=== PATIENT | male | born 1940 | race Caucasian/White ===

== ENCOUNTER 2016-08-09 13:09 | Inpatient (IN) | payer OTHER ==
--- NOTE | 2016-08-09 13:41 | CPEKG ---
Heart Rate: 108 RR Interval: 556 P-R Interval: 112 QRSD Interval: 124 QT Interval: 368 QTC Interval: 494 P [place]: 0 QRS [place]: 55 EKG Severity - ABNORMAL ECG - EKG Impression: SINUS TACHYCARDIA EKG Impression: NONSPECIFIC INTRAVENTRICULAR CONDUCTION DELAY EKG Impression: ST DEPRESSION, CONSIDER ISCHEMIA, ANT-LAT LDS Electronically Signed By: Teo Doan 09-Aug-2016 13:49:48
[2016-08-09] MEDS ORDERED: methylPREDNISolone SOD SUCC 125 MG/2 ML VIAL IVP ONE (13:44)
[2016-08-09] MEDS ORDERED: IPRATROPIUM/ALBUTEROL 3 ML DEYVIAL IH ONE (13:44)
--- NOTE | 2016-08-09 13:45 | EDPHY ---
H & P Time Seen by Provider: 08/09/16 13:29 HPI/ROS: CHIEF COMPLAINT: Wheezing and increased oxygen need HISTORY OF PRESENT ILLNESS: History is from patient as well as his son. He has a history of COPD and pulmonary embolism. The patient is brought in today by his son with increased coughing and chest congestion as well as increased oxygen demand. Today son noted the patient was 86% on his normal 2 L and had labored breathing. This is associated with a nonproductive cough but without chest pain or fever. Symptoms moderate to severe and associated with weakness such that the patient can't even get around even with his walker. REVIEW OF SYSTEMS: Eye: no change in vision ENT: no sore throat Cardiac: no chest pain or syncope Pulmonary: HPI, no hemoptysis. Abdomen: No vomiting or abdominal pain, but worsening fecal incontinence. Musculoskeletal: no back pain or leg swelling Skin: Sacral decubitus, unchanged Neuro: no headache Constitutional: no fever : Urinary incontinence, increasing over the past month. A comprehensive 10 point review of systems is otherwise negative aside from elements mentioned in the history of present illness. PAST MEDICAL HISTORY: Includes cardiac bypass in 2000, renal failure, hypertension, diabetes, COPD with home oxygen, pulmonary embolism with anticoagulation discontinued in 2014 after multiple falls. Social history: Ex pipe smoker, here with his son General Appearance: Alert and conversant, cooperative. Eyes: No scleral icterus. ENT, Mouth: Normal mucous membranes. Respiratory: Bilateral expiratory wheezes with no rales or focal lung sounds and increased expiratory phase. Cardiovascular: Regular rate and rhythm. Tachycardic. Gastrointestinal: Abdomen is soft and non tender. Neurological: Alert and knows it is 2016 but thinks it is April. Normally conversant. Face symmetric, normal movement and sensation in all extremities. Skin: Sacral decubitus 10 x 12 cm. Musculoskeletal: No peripheral edema and no joint swelling. Psychiatric: Not agitated. Emergency Department course/MDM: Patient is worsening dyspnea with tachycardia and hypoxia. Plan for DuoNeb and IV steroids Solu-Medrol 125 mg with audible wheezing and history of COPD. Chest x-ray and D-dimer and troponin. Admission to hospitalist service. 1450: Results and plan discussed, CT discussed and consented, usual [address] ordered for dyspnea, D-dimer greater than 2, history of pulmonary embolism. Thrombocytopenia with platelet count 84 noted, is similar to previous variable values. Saturation mid 90s on increased nasal cannula oxygen which was applied immediately for hypoxemia. Smoking Status: Former smoker Constitutional: Initial Vital Signs Temperature (C) 36.6 C 08/09/16 13:10 Heart Rate 125 H 08/09/16 13:10 Respiratory Rate 20 08/09/16 13:10 Blood Pressure 148/86 H 08/09/16 13:10 O2 Sat (%) 87 L 08/09/16 13:10 O2 Delivery Mode Nasal Cannula O2 (L/minute) 3 Allergies/Adverse Reactions: Ebcnmji-Bsb-Efz Reductase Inhibitor Allergy (Verified 08/09/16 13:22) Home Medications: Medication Instructions Recorded Ergocalciferol [Vitamin D2 (*)] 50,000 unit PO .QMONTH 09/13/11 Ezetimibe [Zetia 10 MG (*)] 10 mg PO HS 09/13/11 Niacin ER [Niaspan 1000 mg (*)] 1,000 mg PO HS 09/13/11 ALPRAZolam [Xanax 0.25 MG (*)] 0.25 mg PO TID 07/31/14 amLODIPine BESYLATE [Norvasc 5 mg 5 mg PO HS 07/31/14 (*)] Fluvastatin Sodium [Lescol] 40 mg PO HS 10/04/14 Lisinopril [Zestril 5 mg (*)] 5 mg PO HS 12/25/14 oxyCODONE IR [Oxycodone Ir (*)] 5 - 15 mg PO Q4 PRN #120 tab 03/07/15 ALPRAZolam [Xanax 1 MG (*)] 1 mg PO TID PRN 10/01/15 levETIRAcetam [Keppra 250 mg (*)] 250 mg PO HS 10/01/15 Albuterol [Ventolin Hfa Inhaler] 2 puffs IH Q4 PRN #0 mdi 10/04/15 Furosemide [Lasix 40 MG (*)] 40 mg PO BIDDIUR #0 tab 10/04/15 Herbals/Supplements -Info Only 1 ea PO DAILY 08/09/16 Meloxicam 7.5 mg PO DAILY PRN 08/09/16 Metoprolol Succinate Xr [Toprol Xl 100 mg PO HS 08/09/16 50 mg (*)] Potassium Cl [Klor-Con] 10 meq PO DAILY 08/09/16 Medical Decision Making - Diagnostics EKG Interpretation: 12-lead EKG interpreted by me; official reading is in trace master. My interpretation is sinus tachycardia with nonspecific conduction delay and nonspecific lateral ST flattening. Imaging: CT angiogram personally reviewed by myself and discussed with Dr. Lai at 4:37 p.m. suspicious for subsegmental right lower lung pulmonary embolism, CT repeated at Dr. Lai request for better timing bolus. CT repeat at 1722-for pulmonary embolism per Joelle. Differential Diagnosis: Differential diagnosis considered for shortness of breath including but not limited to pulmonary infectious process, COPD, asthma, pulmonary embolus and congestive heart failure. Consult/Admit Bed Type: [facility] [place] 1727 Critical Care Time: Critical care time spent by me, Dr. Doan, exclusively with the care of this patient was 35 minutes, exclusive of PA or [employer]EL[employer] time and exclusive of separate procedures. The organ system at risk was pulmonary and I ordered multiple nebulized medications including albuterol and Atrovent, IV Solu-Medrol, multiple diagnostic studies including CT scanning of the chest, discussion with admitting hospitalist, application of supplemental oxygen; to stabilize the patient and prevent worsening of the patient's condition. - Data Points Laboratory Results: Laboratory Results 08/09/16 13:50 08/09/16 13:14 08/09/16 08/09/16 08/09/16 13:50 13:50 13:25 WBC 6.92 10^3/uL 10^3/uL (3.80-9.50) RBC 4.40 10^6/uL 10^6/uL (4.40-6.38) Hgb 15.4 g/dL g/dL (13.7-17.5) Hct 42.4 % % (40.0-51.0) MCV 96.4 fL fL (81.5-99.8) MCH 35.0 pg H pg (27.9-34.1) MCHC 36.3 g/dL g/dL (32.4-36.7) RDW 13.1 % % (11.5-15.2) Plt Count 84 10^3/uL L 10^3/uL (150-400) MPV 11.1 fL fL (8.7-11.7) Neut % (Auto) 86.1 % H % (39.3-74.2) Lymph % (Auto) 5.8 % L % (15.0-45.0) [place] % (Auto) 6.4 % % (4.5-13.0) Eos % (Auto) 0.4 % L % (0.6-7.6) Baso % (Auto) 0.4 % % (0.3-1.7) Nucleat RBC Rel Count 0.0 % % (0.0-0.2) Absolute Neuts (auto) 5.96 10^3/uL 10^3/uL (1.70-6.50) Absolute Lymphs (auto) 0.40 10^3/uL L 10^3/uL (1.00-3.00) Absolute Monos (auto) 0.44 10^3/uL 10^3/uL (0.30-0.80) Absolute Eos (auto) 0.03 10^3/uL 10^3/uL (0.03-0.40) Absolute Basos (auto) 0.03 10^3/uL 10^3/uL (0.02-0.10) Absolute Nucleated RBC 0.00 10^3/uL 10^3/uL (0-0.01) Immature Gran % 0.9 % % (0.0-1.1) Immature Gran # 0.06 10^3/uL 10^3/uL (0.00-0.10) D-Dimer 2.02 ug/mLFEU H ug/mLFEU (0.00-0.50) Sodium Potassium Chloride Carbon Dioxide Anion Gap BUN Creatinine Estimated GFR Glucose Calcium Troponin I NT-Pro-B Natriuret Pep Urine Color YELLOW Urine Appearance CLEAR Urine pH 6.0 (5.0-7.5) Ur Specific [place] 1.014 (1.002-1.030) Urine Protein 2+ H (NEGATIVE) Urine Ketones TRACE H (NEGATIVE) Urine Blood 1+ H (NEGATIVE) Urine Nitrate NEGATIVE (NEGATIVE) Urine Bilirubin NEGATIVE (NEGATIVE) Urine Urobilinogen 2.0 EU H EU (0.2-1.0) Ur Leukocyte Esterase NEGATIVE (NEGATIVE) Urine RBC 1-3 /hpf /hpf (0-3) Urine WBC 1-3 /hpf /hpf (0-3) Ur Epithelial Cells TRACE /lpf /lpf (NONE-1+) Calcium Oxalate Crystal PRESENT /hpf /hpf (NONE-1+) Hyaline Casts 1-5 /lpf /lpf (0-1) Ur Culture Indicated? NOT INDICATED (NI) Urine Glucose NEGATIVE (NEGATIVE) 08/09/16 13:14 WBC RBC Hgb Hct MCV MCH MCHC RDW Plt Count MPV Neut % (Auto) Lymph % (Auto) [place] % (Auto) Eos % (Auto) Baso % (Auto) Nucleat RBC Rel Count Absolute Neuts (auto) Absolute Lymphs (auto) Absolute Monos (auto) Absolute Eos (auto) Absolute Basos (auto) Absolute Nucleated RBC Immature Gran % Immature Gran # D-Dimer Sodium 144 mEq/L mEq/L (134-144) Potassium 3.5 mEq/L mEq/L (3.5-5.2) Chloride 99 mEq/L mEq/L (97-110) Carbon Dioxide 30 mEq/l mEq/l (22-31) Anion Gap 15 mEq/L mEq/L (8-16) BUN 17 mg/dL mg/dL (7-23) Creatinine 1.0 mg/dL mg/dL (0.7-1.3) Estimated GFR > 60 Glucose 177 mg/dL H mg/dL (70-100) Calcium 9.0 mg/dL mg/dL (8.5-10.4) Troponin I 0.016 ng/mL ng/mL (0-0.034) NT-Pro-B Natriuret Pep 206 pg/mL pg/mL (0-450) Urine Color Urine Appearance Urine pH Ur Specific [place] Urine Protein Urine Ketones Urine Blood Urine Nitrate Urine Bilirubin Urine Urobilinogen Ur Leukocyte Esterase Urine RBC Urine WBC Ur Epithelial Cells Calcium Oxalate Crystal Hyaline Casts Ur Culture Indicated? Urine Glucose Medications Given: Discontinued Medications Albuterol (Proventil Neb) 3 ml IH EDNOW ONE Stop: 08/09/16 14:57 Last Admin: 08/09/16 15:31 Dose: 3 ml Albuterol/Ipratropium (Duoneb) 3 ml IH EDNOW ONE Stop: 08/09/16 13:45 Last Admin: 08/09/16 14:14 Dose: 3 ml Alprazolam (Xanax) 1 mg PO EDNOW ONE Stop: 08/09/16 14:56 Last Admin: 08/09/16 14:55 Dose: 1 mg Methylprednisolone Sodium Succinate (Solu-Medrol) 125 mg IVP EDNOW ONE Stop: 08/09/16 13:45 Last Admin: 08/09/16 14:10 Dose: 125 mg Departure - Departure Disposition: [facility] Inpatient Acute Clinical Impression: Chronic obstructive pulmonary disease with acute exacerbation Condition: Fair
[2016-08-09 14:12] LABS: % IMMATURE GRANULYOCYTES 0.9 % (0.0-1.1); ABSOLUTE IMMATURE GRANULOCYTES 0.06 10^3/uL (0.00-0.10); ADD DIFF? NO; ADD MORPH? NO; ADD SCAN? NO; ATYPICAL LYMPHOCYTE FLAG 0 (0-99); FRAGMENT RBC FLAG 0 (0-99); HEMATOCRIT 42.4 % (40.0-51.0); HEMOGLOBIN 15.4 g/dL (13.7-17.5); LEFT SHIFT FLG 0 (0-99); LIPEMIA HEMOLYSIS FLAG 90 (0-99); MEAN CELL HEMOGLOBIN CONCENTR. 36.3 g/dL (32.4-36.7); MEAN CELL VOLUME 96.4 fL (81.5-99.8); MEAN PLATELET VOLUME 11.1 fL (8.7-11.7); PLATELET CLUMPS FLAG 0 (0-99); PLATELET COUNT 84 10^3/uL (150-400); RED CELL DISTRIBUTION WIDTH 13.1 % (11.5-15.2)
[2016-08-09 14:20] LABS: ANION GAP 15 mEq/L (8-16); CARBON DIOXIDE 30 mEq/l (22-31); CHLORIDE 99 mEq/L (97-110); GLOMERULAR FILTRATION RATE > 60; GLUCOSE 177 mg/dL (70-100); POTASSIUM 3.5 mEq/L (3.5-5.2); SODIUM 144 mEq/L (134-144)
[2016-08-09 14:31] LABS: TROPONIN I 0.016 ng/mL (0-0.034)
[2016-08-09 14:37] LABS: COLOR YELLOW; LEUKOCYTE ESTERASE,URINE NEGATIVE (NEGATIVE); NITRITE,URINE NEGATIVE (NEGATIVE)
[2016-08-09] MEDS ORDERED: ALPRAZolam 1 MG TAB ONE (14:53)
[2016-08-09] MEDS ORDERED: ALPRAZolam 1 MG TAB PO ONE (14:55)
[2016-08-09] MEDS ORDERED: ALBUTEROL 3 ML DEYVIAL IH ONE (14:56)
[2016-08-09] MEDS ORDERED: IOPAMIDOL (ISOVUE-370) 150 ML BTL IV ONE ×2 (15:09→16:40)
[2016-08-09] MEDS ORDERED: ACETAMINOPHEN 325 MG TAB PO PRN (18:04)
[2016-08-09] MEDS ORDERED: ONDANSETRON 4 MG/2 ML VIAL IVP PRN (18:04)
[2016-08-09] MEDS ORDERED: ONDANSETRON DISINTEGRATING 4 MG TAB PO PRN (18:04)
[2016-08-09] MEDS ORDERED: ALPRAZolam 1 MG TAB PO PRN (18:09)
[2016-08-09] MEDS ORDERED: oxyCODONE IR 5 MG TAB PO PRN (18:09)
[2016-08-09] MEDS ORDERED: NON-FORMULARY NEW DRUG (Albuterol 2 PUFFS) IH PRN (18:09)
--- NOTE | 2016-08-09 18:14 | PDGENHP ---
History and Physical - Chief Complaint Acute shortness of breath - History of Present Illness PCP: Dr. Lee Tub Operator: Dr. Maria HPI: 76-year-old male presenting with acute shortness of breath characterized as chest congestion with associated productive cough, exacerbated with activity , slightly alleviated with rest as well as use of nebulizer obtained in the emergency department. Patient reports that he has been unable to utilize walker secondary to generalized weakness and shortness of breath. Per report, his SpO2 has been 86% at home while utilizing his 2 L nasal cannula supplemental oxygen. The patient reports that he has not been increasing his inhaler use and he has not recently changed any medications. He also endorses some bilateral upper extremity tremulousness with onset of symptoms approximately 2 weeks ago and right hernández persistent thereafter. This has been concomitant with his shortness of breath. He has not recently changed his alcohol intake and his last beverage was last night. He is also not recently changed his home dosage of Xanax, which he takes several times daily for what he believes esophageal spasm. The patient is currently enrolled in palliative care at home by his son brought him to the emergency department for further care. History Information - Allergies/Home Medication List Allergies/Adverse Reactions: Ssqhtbj-Hgh-Tdj Reductase Inhibitor Allergy (Verified 08/09/16 13:22) Home Medications: Ergocalciferol [Vitamin D2 (*)] 50,000 unit PO .QMONTH 09/13/11 [Last Taken 07/03] Ezetimibe [Zetia 10 MG (*)] 10 mg PO HS 09/13/11 [Last Taken 08/07/16] Niacin ER [Niaspan 1000 mg (*)] 1,000 mg PO HS 09/13/11 [Last Taken 08/07/16] ALPRAZolam [Xanax 0.25 MG (*)] 0.25 mg PO TID 07/31/14 [Last Taken 11/11/15 09: 00] amLODIPine BESYLATE [Norvasc 5 mg (*)] 5 mg PO HS 07/31/14 [Last Taken 08/07/16] Fluvastatin Sodium [Lescol] 40 mg PO HS 10/04/14 [Last Taken 08/07/16] Lisinopril [Zestril 5 mg (*)] 5 mg PO HS 12/25/14 [Last Taken 08/07/16] ALPRAZolam [Xanax 1 MG (*)] 1 mg PO TID PRN 10/01/15 [Last Taken 08/08/16] levETIRAcetam [Keppra 250 mg (*)] 250 mg PO HS 10/01/15 [Last Taken 08/07/16] Herbals/Supplements -Info Only 1 ea PO DAILY 08/09/16 [Last Taken Unknown] Meloxicam 7.5 mg PO DAILY PRN 08/09/16 [Last Taken Unknown] Metoprolol Succinate Xr [Toprol Xl 50 mg (*)] 100 mg PO HS 08/09/16 [Last Taken 08/07/16] Potassium Cl [Klor-Con] 10 meq PO DAILY 08/09/16 [Last Taken 08/08/16] I have personally reviewed and updated: family history, medical history, social history, surgical history - Past Medical History coronary artery disease (Status post CABG), CHF (Diastolic), COPD (With chronic hypoxic respiratory failure on 2 L nasal cannula chronically), dementia, diabetes type 2, hyperlipidemia, pulmonary embolism (Chronically on Coumadin, negative CT angiogram since September 2015) Additional medical history: Esophageal spasm. Continuous opiate dependency. Continuous benzodiazepine dependency. Chronic gait instability - Surgical History Reports: coronary bypass surgery (2000), cholecystectomy - Family History Additional family history: CAD, breast cancer, CVA - Social History Smoking Status: Former smoker Alcohol Use: Other (Nightly has 2 alcoholic beverages, this has been a longstanding point of contention between the patient and his son) Drug Use: None Additional social history: Lives with his son Seth, requires walker for ambulation Review of Systems ROS: 10pt was reviewed & negative except for what was stated in HPI & below Constitutional: Reports: weakness Respiratory: Reports: cough, shortness of breath Neurological: Reports: other (Tremulousness) Physical Exam Temp Pulse Resp BP Pulse Ox 36.6 C 125 H 20 148/86 H 87 L 08/09/16 13:10 08/09/16 13:10 08/09/16 13:10 08/09/16 13:10 08/09/16 13:10 Constitutional: no apparent distress, not in pain, chronically ill appearing, obese, uncomfortable Eyes: PERRL, anicteric sclera, EOMI Ears, Nose, Mouth, Throat: hearing normal, no oral mucosal ulcers, other (Tacky mucous membranes) Cardiovascular: tachycardia, edema (Trace left lower extremity edema), No systolic murmur, No irregularly irregular Respiratory: expiratory wheeze, bronchial breath sounds, No reduced air movement , No inspiratory crackles Gastrointestinal: normoactive bowel sounds, soft, non-tender abdomen, no palpable masses Skin: other (Scattered, profuse benign nevi across his back without any surrounding erythema) Neurologic: AAOx3, sensation intact bilaterally, No weakness (Motor strength 5/ 5 bilaterally), No asterixes (Bilateral upper extremity tremulousness, right greater than left), No facial droop Psychiatric: interacting appropriately, not anxious, thought process linear, other (Concentration 0/7), No agitated Lab Data & Imaging Review 08/09/16 13:50 08/09/16 13:14 WBC 6.92 10^3/uL (3.80-9.50) 08/09/16 13:50 RBC 4.40 10^6/uL (4.40-6.38) 08/09/16 13:50 Hgb 15.4 g/dL (13.7-17.5) 08/09/16 13:50 Hct 42.4 % (40.0-51.0) 08/09/16 13:50 MCV 96.4 fL (81.5-99.8) 08/09/16 13:50 MCH 35.0 pg (27.9-34.1) H 08/09/16 13:50 MCHC 36.3 g/dL (32.4-36.7) 08/09/16 13:50 RDW 13.1 % (11.5-15.2) 08/09/16 13:50 Plt Count 84 10^3/uL (150-400) L 08/09/16 13:50 MPV 11.1 fL (8.7-11.7) 08/09/16 13:50 Neut % (Auto) 86.1 % (39.3-74.2) H 08/09/16 13:50 Lymph % (Auto) 5.8 % (15.0-45.0) L 08/09/16 13:50 [place] % (Auto) 6.4 % (4.5-13.0) 08/09/16 13:50 Eos % (Auto) 0.4 % (0.6-7.6) L 08/09/16 13:50 Baso % (Auto) 0.4 % (0.3-1.7) 08/09/16 13:50 Nucleat RBC Rel Count 0.0 % (0.0-0.2) 08/09/16 13:50 Absolute Neuts (auto) 5.96 10^3/uL (1.70-6.50) 08/09/16 13:50 Absolute Lymphs (auto) 0.40 10^3/uL (1.00-3.00) L 08/09/16 13:50 Absolute Monos (auto) 0.44 10^3/uL (0.30-0.80) 08/09/16 13:50 Absolute Eos (auto) 0.03 10^3/uL (0.03-0.40) 08/09/16 13:50 Absolute Basos (auto) 0.03 10^3/uL (0.02-0.10) 08/09/16 13:50 Absolute Nucleated RBC 0.00 10^3/uL (0-0.01) 08/09/16 13:50 Immature Gran % 0.9 % (0.0-1.1) 08/09/16 13:50 Immature Gran # 0.06 10^3/uL (0.00-0.10) 08/09/16 13:50 D-Dimer 2.02 ug/mLFEU (0.00-0.50) H 08/09/16 13:50 Sodium 144 mEq/L (134-144) 08/09/16 13:14 Potassium 3.5 mEq/L (3.5-5.2) 08/09/16 13:14 Chloride 99 mEq/L (97-110) 08/09/16 13:14 Carbon Dioxide 30 mEq/l (22-31) 08/09/16 13:14 Anion Gap 15 mEq/L (8-16) 08/09/16 13:14 BUN 17 mg/dL (7-23) 08/09/16 13:14 Creatinine 1.0 mg/dL (0.7-1.3) 08/09/16 13:14 Estimated GFR > 60 08/09/16 13:14 Glucose 177 mg/dL (70-100) H 08/09/16 13:14 Calcium 9.0 mg/dL (8.5-10.4) 08/09/16 13:14 Troponin I 0.016 ng/mL (0-0.034) 08/09/16 13:14 NT-Pro-B Natriuret Pep 206 pg/mL (0-450) 08/09/16 13:14 Urine Color YELLOW 08/09/16 13:25 Urine Appearance CLEAR 08/09/16 13:25 Urine pH 6.0 (5.0-7.5) 08/09/16 13:25 Ur Specific [place] 1.014 (1.002-1.030) 08/09/16 13:25 Urine Protein 2+ (NEGATIVE) H 08/09/16 13:25 Urine Ketones TRACE (NEGATIVE) H 08/09/16 13:25 Urine Blood 1+ (NEGATIVE) H 08/09/16 13:25 Urine Nitrate NEGATIVE (NEGATIVE) 08/09/16 13:25 Urine Bilirubin NEGATIVE (NEGATIVE) 08/09/16 13:25 Urine Urobilinogen 2.0 EU (0.2-1.0) H 08/09/16 13:25 Ur Leukocyte Esterase NEGATIVE (NEGATIVE) 08/09/16 13:25 Urine RBC 1-3 /hpf (0-3) 08/09/16 13:25 Urine WBC 1-3 /hpf (0-3) 08/09/16 13:25 Ur Epithelial Cells TRACE /lpf (NONE-1+) 08/09/16 13:25 Calcium Oxalate Crystal PRESENT /hpf (NONE-1+) 08/09/16 13:25 Hyaline Casts 1-5 /lpf (0-1) 08/09/16 13:25 Ur Culture Indicated? NOT INDICATED (NI) 08/09/16 13:25 Urine Glucose NEGATIVE (NEGATIVE) 08/09/16 13:25 Visualized and Interpreted EKG results: Yes EKG Interpretation: Positive for: other (Sinus tachycardia with a subtle ST depression in lead V4 V5) Assessment & Plan Assessment: 76-year-old male presents with acute COPD exacerbation in the setting of chronic hypoxic respiratory failure, dementia Plan: 1. COPD exacerbation. Evidenced by diffuse expiratory wheezes and bronchial breath sounds with symptomatic cough and shortness of breath, in the setting of known COPD, unclear precipitant. -reports symptoms have been present for 2 weeks, suspect URI, CT angiograms demonstrating mucus but no focal infiltrate and no pulmonary embolism -initiate prednisone 60 mg, day 1 of 5 -scheduled Xopenex and Atrovent -initiate antibiotics to reduce duration of symptoms, Augmentin 875 given cardiotoxic risks of azithromycin -patient's palliative [facility], will place palliative consultation and recommend communicating with his outpatient palliative care group to ascertain what services can be better facilitated in the outpatient setting 2. Coronary artery disease. Chronic, continue patient's home medications once reconciled 3. Tachycardia. Sinus, unclear etiology, either secondary to his acute COPD exacerbation, versus stimulated by beta agonist therapy versus hypovolemia -run IV normal saline at 100 cc an hour and monitor heart rhythm on telemetry to ensure he is not going in and out of atrial fibrillation 4. Chronic kidney disease stage 3. Baseline creatinine 1.0-1.3, no evidence of acute exacerbation, continue to monitor daily 5. Chronic diastolic congestive heart failure. Evidence of acute exacerbation on chest imaging, BNP and troponin are both within normal limits, monitor his volume status while we are holding his Lasix and potassium while on IV fluids and stop IV fluids tomorrow if gauge to be euvolemic -continue monitor strict I&Os, daily weights 6. Chronic hypoxic respiratory failure. Continue on supplemental oxygen 7. Continuous opiate and benzodiazepine dependency. Continue him on lower dose oxycodone, continue on as needed Xanax, do not believe that his tremulousness is secondary to withdrawal given that he has continued to take his home medications on his regular schedule 8. Tremulousness. Acute, onset of symptoms approximately 2 weeks ago, unclear etiology -does not appear to be withdrawal symptoms of alcohol benzos or opiates given that he has been taking all of these up until the day of presentation -continue to monitor -continue 1 alcoholic beverage nightly to avoid exacerbating 9. Dementia. Chronic encephalopathy, concentration is poor orientation is good , this has been a significant limiting factor in the past secondary to poor volitional activity and difficulty comprehending the limitations of ongoing benzo, opiates, alcohol use -reviewed outside records including discharge summary by Dr. Rodrigez on 11/14/2015 reporting that the patient was advised to go to [facility] but he elected to go home with what he and his son reported would be 24/7 care despite his recent history of falls and difficulty managing at home 10. History of pulmonary embolism. Continue on Coumadin, INR currently to, continue monitor daily INR Diet. Cardiac diet Prophylaxis. High risk patient, currently not indicated given his INR is therapeutic Code. Do not resuscitate per patient, his son Seth is MPOA Disposition. Anticipated discharge uncertain this time, anticipated length stay is greater than 48 hours warranting inpatient admission status for acute COPD exacerbation in the setting of high risk comorbid CHF, CKD, CAD, chronic respiratory failure, dementia, opiate and benzodiazepine dependency. I discussed patient's presentation with Dr. Teo Doan, we both agree that the patient should be admitted as an inpatient. This patient is high risk of morbidity and or mortality given his significant, severe high risk comorbid conditions which increased his level of complexity exponentially.
[2016-08-09] MEDS ORDERED: NS W/ 20 KCl/L 1,000 ML IV SCH (18:15)
[2016-08-09] MEDS ORDERED: ALBUTEROL 60 PUFFS/8 GM MDI IH PRN (19:56)
[2016-08-09] MEDS: predniSONE 20 MG TAB PO SCH (20:28)
[2016-08-09] MEDS: VODKA 50 ML BOTTLE PO SCH (20:31)
[2016-08-09] MEDS: levETIRAcetam 250 MG TAB PO SCH (20:32)
[2016-08-09] MEDS: amLODIPine BESYLATE 5 MG TAB PO SCH (20:32)
[2016-08-09] MEDS: AMOXICILLIN/CLAVULANATE POT 875/125 MG TAB PO SCH (20:32)
[2016-08-09] MEDS: NIACIN ER 1000 MG TAB.ER PO SCH (20:32)
[2016-08-09] MEDS: METOPROLOL SUCCINATE XR 50 MG TAB PO SCH (20:32)
[2016-08-09] MEDS: LISINOPRIL 5 MG TAB PO SCH (20:32)
[2016-08-09] MEDS: EZETIMIBE 10 MG TAB PO SCH (20:32)
[2016-08-09] MEDS: FLUVASTATIN SODIUM 40 MG PO SCH (20:33)
[2016-08-09] MEDS: ALPRAZolam 0.25 MG TAB PO SCH (22:22)
[2016-08-09 22:44] LABS: TROPONIN I 0.036 ng/mL (0-0.034)
[2016-08-10] MEDS: IPRATROPIUM BROMIDE 0.5 MG/2.5 ML DEYVIAL IH SCH ×4 (02:21→16:09)
[2016-08-10] MEDS: LEVALBUTEROL 0.63 MG/3 ML DEYVIAL IH SCH ×4 (02:21→16:09)
[2016-08-10 06:03] LABS: % IMMATURE GRANULYOCYTES 0.8 % (0.0-1.1); ABSOLUTE IMMATURE GRANULOCYTES 0.04 10^3/uL (0.00-0.10); ADD DIFF? NO; ADD MORPH? NO; ADD SCAN? NO; ATYPICAL LYMPHOCYTE FLAG 0 (0-99); FRAGMENT RBC FLAG 0 (0-99); HEMATOCRIT 36.2 % (40.0-51.0); HEMOGLOBIN 13.2 g/dL (13.7-17.5); LEFT SHIFT FLG 0 (0-99); LIPEMIA HEMOLYSIS FLAG 90 (0-99); MEAN CELL HEMOGLOBIN 35.3 pg (27.9-34.1); MEAN CELL HEMOGLOBIN CONCENTR. 36.5 g/dL (32.4-36.7); MEAN CELL VOLUME 96.8 fL (81.5-99.8); MEAN PLATELET VOLUME 11.4 fL (8.7-11.7); PLATELET CLUMPS FLAG 0 (0-99); PLATELET COUNT 61 10^3/uL (150-400); RED BLOOD CELL COUNT 3.74 10^6/uL (4.40-6.38)
[2016-08-10 06:10] LABS: INR 1.17 (0.83-1.16); PROTIME(PATIENT) 14.9 SEC (12.0-15.0)
[2016-08-10 06:14] LABS: ALANINE AMINOTRANSFERASE 44 IU/L (21-72); ALBUMIN 3.7 g/dL (3.5-5.0); ALKALINE PHOSPHATASE 36 IU/L (38-126); ANION GAP 12 mEq/L (8-16); ASPARTATE AMINOTRANSFERASE 42 IU/L (17-59); BILIRUBIN,TOTAL 2.1 mg/dL (0.1-1.4); CALCIUM 8.9 mg/dL (8.5-10.4); CARBON DIOXIDE 28 mEq/l (22-31); CHLORIDE 101 mEq/L (97-110); GLOMERULAR FILTRATION RATE > 60; GLUCOSE 170 mg/dL (70-100); POTASSIUM 3.8 mEq/L (3.5-5.2); SODIUM 141 mEq/L (134-144); TOTAL PROTEIN 6.3 g/dL (6.3-8.2); TROPONIN I 0.049 ng/mL (0-0.034)
[2016-08-10 06:21] LABS: BILIRUBIN-CONJUGATED 0.6 mg/dL (0.0-0.5); BILIRUBIN-UNCONJUGATED 1.5 mg/dL (0.0-1.1)
[2016-08-10] MEDS: ALPRAZolam 0.25 MG TAB PO SCH ×3 (08:11→21:27)
[2016-08-10] MEDS: ENOXAPARIN 40 MG/0.4 ML SYR SC SCH ×2 (08:11→08:15)
[2016-08-10] MEDS: AMOXICILLIN/CLAVULANATE POT 875/125 MG TAB PO SCH ×2 (08:12→21:24)
[2016-08-10] MEDS: predniSONE 20 MG TAB PO SCH (08:12)
[2016-08-10] MEDS ORDERED: Herbals/Supplements -Info Only PO SCH (09:00)
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
--- NOTE | 2016-08-10 16:48 | HOSPPROG ---
Hospitalist Progress Note Assessment/Plan: 76-year-old male with advance demential admitted for COPD exacerbation. Now back to baseline O2 requirements, but still symptomatic. PT/OT following for deconditioning. 1. COPD exacerbation. Evidenced by diffuse expiratory wheezes and bronchial breath sounds with symptomatic cough and shortness of breath, in the setting of known COPD, unclear precipitant. -reports symptoms have been present for 2 weeks, suspect URI, CT angiograms demonstrating mucus but no focal infiltrate and no pulmonary embolism -prednisone 60 mg, day 2 of 5 -scheduled Xopenex and Atrovent -Augmentin 875 2. Coronary artery disease, Indeterminate troponin. He does not have any chest pain. Will continue with medical optimization 3. Tachycardia. Sinus. Resolved. 4. Chronic kidney disease stage 3. Baseline creatinine 1.0-1.3, no evidence of acute exacerbation, continue to monitor daily 5. Chronic diastolic congestive heart failure. Continue to monitor volume status. IVF will be stopped today. Will cont to hold diuretics for now. Reevaluate tomorrow. -continue monitor strict I&Os, daily weights 6. Chronic hypoxic respiratory failure. now back to baseline 2L 7. opiate and benzodiazepine dependency. -Continue him on lower dose oxycodone, continue on as needed Xanax 8. Tremulousness. ?resolved. Does not appear to have sx's on my examination -does not appear to be withdrawal symptoms of alcohol benzos or opiates given that he has been taking all of these up until the day of presentation -continue to monitor -continue 1 alcoholic beverage nightly to avoid exacerbating 9. Dementia. Chronic encephalopathy 10. History of pulmonary embolism. He is not on A/C. He has a hx of falls and I presume that this was stopped because of this. 11. HTN: continue Amlodipine, Lisinopril. Metoprolol 12. Weakness: PT/OT 13. Bilateral buttock wounds. Wound care is following Diet. Cardiac diet Prophylaxis. High risk patient, currently not indicated given his INR is therapeutic Code. Do not resuscitate per patient, his son Seth is MPOA Disposition. pending clinical course S: Feels better. Back to his baseline O2. Afebrile. No chest pain. Working with PT. Labs: reviewed Objective: Vital Signs Temp Pulse Resp BP Pulse Ox 36.9 C 68 16 145/71 H 97 08/10/16 15:19 08/10/16 16:19 08/10/16 16:19 08/10/16 15:19 08/10/16 16:19 Laboratory Results 08/10/16 05:41 08/10/16 05:41 08/09/16 08/10/16 08/11/16 05:59 05:59 05:59 Intake Total 962 Output Total 300 300 Balance 662 -300 PT 14.9 SEC (12.0-15.0) 08/10/16 05:41 INR 1.17 (0.83-1.16) H 08/10/16 05:41 - Time Spent With Patient Time Spent with Patient: greater than 25 minutes Time Spent with Patient: Greater than 25 minutes spent on this patients care, greater than 50% of time spent counseling, educating, and coordinating care regarding the above mentioned plan. - Physical Exam Constitutional: no apparent distress, appears nourished, not in pain Eyes: PERRL, anicteric sclera, EOMI Ears, Nose, Mouth, Throat: moist mucous membranes Cardiovascular: regular rate and rhythym, no murmur, rub, or gallop Respiratory: reduced air movement, expiratory wheeze Gastrointestinal: normoactive bowel sounds, soft, non-tender abdomen, no palpable masses Genitourinary: no bladder fullness, no bladder tenderness, no renal bruits Skin: warm, normal color Psychiatric: interacting appropriately, not anxious ICD10 Worksheet Patient Problems: Problems Problem Status Onset Chronic Disease Mgmt/Transitional Care Acute Chronic obstructive pulmonary disease with acute exacerbation Acute Alcohol abuse Active Hypoxia Acute Palliative care encounter Acute Resting tremor Acute Weakness Acute
[2016-08-10] MEDS: VODKA 50 ML BOTTLE PO SCH (17:12)
[2016-08-10] MEDS: METOPROLOL SUCCINATE XR 50 MG TAB PO SCH (21:23)
[2016-08-10] MEDS: NIACIN ER 1000 MG TAB.ER PO SCH (21:23)
[2016-08-10] MEDS: EZETIMIBE 10 MG TAB PO SCH (21:24)
[2016-08-10] MEDS: levETIRAcetam 250 MG TAB PO SCH (21:24)
[2016-08-10] MEDS: ALPRAZolam 1 MG TAB PO PRN (21:25)
[2016-08-10] MEDS: amLODIPine BESYLATE 5 MG TAB PO SCH (21:25)
[2016-08-10] MEDS: LISINOPRIL 5 MG TAB PO SCH (21:25)
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
[2016-08-10] MEDS: FLUVASTATIN SODIUM 40 MG PO SCH (22:10)
[2016-08-11] MEDS: LEVALBUTEROL 0.63 MG/3 ML DEYVIAL IH SCH ×5 (00:16→22:06)
[2016-08-11] MEDS: IPRATROPIUM BROMIDE 0.5 MG/2.5 ML DEYVIAL IH SCH ×5 (00:16→22:03)
[2016-08-11 05:28] LABS: % IMMATURE GRANULYOCYTES 0.4 % (0.0-1.1); ABSOLUTE IMMATURE GRANULOCYTES 0.02 10^3/uL (0.00-0.10); ADD DIFF? NO; ADD MORPH? NO; ADD SCAN? NO; ATYPICAL LYMPHOCYTE FLAG 0 (0-99); FRAGMENT RBC FLAG 0 (0-99); HEMATOCRIT 35.8 % (40.0-51.0); HEMOGLOBIN 12.8 g/dL (13.7-17.5); LEFT SHIFT FLG 0 (0-99); LIPEMIA HEMOLYSIS FLAG 90 (0-99); MEAN CELL HEMOGLOBIN 34.7 pg (27.9-34.1); MEAN CELL HEMOGLOBIN CONCENTR. 35.8 g/dL (32.4-36.7); MEAN PLATELET VOLUME 11.6 fL (8.7-11.7); PLATELET CLUMPS FLAG 0 (0-99); PLATELET COUNT 54 10^3/uL (150-400); RED BLOOD CELL COUNT 3.69 10^6/uL (4.40-6.38)
[2016-08-11 05:52] LABS: ANION GAP 10 mEq/L (8-16); CALCIUM 8.6 mg/dL (8.5-10.4); CARBON DIOXIDE 27 mEq/l (22-31); CHLORIDE 101 mEq/L (97-110); GLOMERULAR FILTRATION RATE > 60; GLUCOSE 134 mg/dL (70-100); POTASSIUM 3.6 mEq/L (3.5-5.2); SODIUM 138 mEq/L (134-144)
[2016-08-11] MEDS: predniSONE 20 MG TAB PO SCH (07:49)
[2016-08-11] MEDS: AMOXICILLIN/CLAVULANATE POT 875/125 MG TAB PO SCH ×2 (07:49→19:59)
[2016-08-11] MEDS: ALPRAZolam 0.25 MG TAB PO SCH ×3 (07:49→19:59)
[2016-08-11] MEDS: ENOXAPARIN 40 MG/0.4 ML SYR SC SCH (07:50)
--- NOTE | 2016-08-11 15:13 | HOSPPROG ---
Hospitalist Progress Note Assessment/Plan: 76-year-old male with advance demential admitted for COPD exacerbation. Now back to baseline O2 requirements, but still symptomatic. PT/OT following for deconditioning. # Acute COPD exacerbation- Evidenced by diffuse expiratory wheezes - reports baseline SOB CTA (personally reviewed and interpreted) no pulmonary embolism -will start prednisone taper -scheduled Xopenex and Atrovent -cont Augmentin for 7 day course # Coronary artery disease- on admit Indeterminate troponin- no chest pain - continue with medical optimization # Chronic kidney disease stage 3. Baseline creatinine 1.0-1.3 - continue to monitor daily # Chronic diastolic congestive heart failure- appears euvolemia - cont to hold diuretics - cont BP control - continue monitor strict I&Os, daily weights # Acute on Chronic hypoxic respiratory failure- continue tx above # opiate and benzodiazepine dependency. -Continue on lower dose oxycodone and as needed Xanax # Alcohol abuse - pt at high risk for withdrawal - agree with continue low dose alcohol dialy # Dementia. Chronic encephalopathy # History of pulmonary embolism - He is not on A/C. He has a hx of falls and I presume that this was stopped because of this. # HTN- continue Amlodipine, Lisinopril, Metoprolol # Bilateral buttock wounds-Wound care is following # Diet. Cardiac diet # Prophylaxis. High risk patient- will start enoxaparin # Code. Do not resuscitate per patient, his son Seth is MPOA # Disposition- patient does not want to dc to SNF - Ethics finds has decision making capacity I have discussed the case with CM - working to coordinate with son on safest disposition option Subjective: breathing is stable Objective: Vital Signs Temp Pulse Resp BP Pulse Ox 36.3 C 72 16 158/87 H 93 08/11/16 12:15 08/11/16 12:15 08/11/16 12:15 08/11/16 12:15 08/11/16 12:15 Laboratory Results 08/11/16 05:03 08/11/16 05:03 08/10/16 08/11/16 08/12/16 05:59 05:59 05:59 Intake Total 962 1700 Output Total 300 870 300 Balance 662 830 -300 PT 14.9 SEC (12.0-15.0) 08/10/16 05:41 INR 1.17 (0.83-1.16) H 08/10/16 05:41 - Physical Exam Constitutional: no apparent distress Eyes: anicteric sclera Ears, Nose, Mouth, Throat: dry mucous membranes Cardiovascular: regular rate and rhythym Respiratory: no respiratory distress, No expiratory wheeze Gastrointestinal: normoactive bowel sounds, soft, non-tender abdomen Genitourinary: no bladder fullness Skin: warm, normal color Musculoskeletal: No asymmetric calves Neurologic: AAOx3 Psychiatric: interacting appropriately, depressed Lymph, Heme, Immunologic: no cervical LAD ICD10 Worksheet Patient Problems: Problems Problem Status Onset Chronic Disease Mgmt/Transitional Care Acute Chronic obstructive pulmonary disease with acute exacerbation Acute Alcohol abuse Active Hypoxia Acute Palliative care encounter Acute Resting tremor Acute Weakness Acute
[2016-08-11] MEDS ORDERED: predniSONE 20 MG TAB PO SCH (15:14)
[2016-08-11] MEDS: VODKA 50 ML BOTTLE PO SCH (16:46)
[2016-08-11] MEDS: LISINOPRIL 5 MG TAB PO SCH (19:57)
[2016-08-11] MEDS: amLODIPine BESYLATE 5 MG TAB PO SCH (19:58)
[2016-08-11] MEDS: ALPRAZolam 1 MG TAB PO PRN (19:58)
[2016-08-11] MEDS: METOPROLOL SUCCINATE XR 50 MG TAB PO SCH (19:58)
[2016-08-11] MEDS: EZETIMIBE 10 MG TAB PO SCH (19:59)
[2016-08-11] MEDS: levETIRAcetam 250 MG TAB PO SCH (19:59)
[2016-08-11] MEDS: NIACIN ER 1000 MG TAB.ER PO SCH (19:59)
[2016-08-11] MEDS: FLUVASTATIN SODIUM 40 MG PO SCH (20:00)
[2016-08-12] MEDS: IPRATROPIUM BROMIDE 0.5 MG/2.5 ML DEYVIAL IH SCH ×2 (06:10→10:36)
[2016-08-12] MEDS: LEVALBUTEROL 0.63 MG/3 ML DEYVIAL IH SCH ×2 (06:10→10:37)
[2016-08-12 09:05] VITALS: O2SAT 93
[2016-08-12] MEDS: ENOXAPARIN 40 MG/0.4 ML SYR SC SCH ×2 (09:11→09:14)
[2016-08-12] MEDS: AMOXICILLIN/CLAVULANATE POT 875/125 MG TAB PO SCH (09:12)
[2016-08-12] MEDS: ALPRAZolam 0.25 MG TAB PO SCH (09:12)
--- NOTE | 2016-08-12 11:13 | PDIAF ---
- Diagnosis Diagnosis: copd Code Status: Do Not Resuscitate - Medication Management Discharge Medications: Medications to Continue on Transfer Ergocalciferol [Vitamin D2 (*)] 50,000 unit PO .QMONTH 09/13/11 [Last Taken 07/03] Ezetimibe [Zetia 10 MG (*)] 10 mg PO HS 09/13/11 [Last Taken 08/07/16] Niacin ER [Niaspan 1000 mg (*)] 1,000 mg PO HS 09/13/11 [Last Taken 08/07/16] ALPRAZolam [Xanax 0.25 MG (*)] 0.25 mg PO TID 07/31/14 [Last Taken 11/11/15 09: 00] amLODIPine BESYLATE [Norvasc 5 mg (*)] 5 mg PO HS 07/31/14 [Last Taken 08/07/16] Fluvastatin Sodium [Lescol] 40 mg PO HS 10/04/14 [Last Taken 08/07/16] Lisinopril [Zestril 5 mg (*)] 5 mg PO HS 12/25/14 [Last Taken 08/07/16] oxyCODONE IR [Oxycodone Ir (*)] 5 - 15 mg PO Q4 PRN #120 tab 03/07/15 [Last Taken 08/08/16] ALPRAZolam [Xanax 1 MG (*)] 1 mg PO TID PRN 10/01/15 [Last Taken 08/08/16] levETIRAcetam [Keppra 250 mg (*)] 250 mg PO HS 10/01/15 [Last Taken 08/07/16] Albuterol [Ventolin Hfa Inhaler] 2 puffs IH Q4 PRN #0 mdi 10/04/15 [Last Taken 11/10/15] Furosemide [Lasix 40 MG (*)] 40 mg PO BIDDIUR #0 tab 10/04/15 [Last Taken ] Herbals/Supplements -Info Only 1 ea PO DAILY 08/09/16 [Last Taken Unknown] Meloxicam 7.5 mg PO DAILY PRN 08/09/16 [Last Taken Unknown] Metoprolol Succinate Xr [Toprol Xl 50 mg (*)] 100 mg PO HS 08/09/16 [Last Taken 08/07/16] Potassium Cl [Klor-Con 10 meq (RX)] 10 meq PO DAILY 08/09/16 [Last Taken ] Amoxicillin/Clavulanate Pot [Augmentin 875 MG TAB (*)] 875 mg PO BID #8 tab [Last Taken Unknown] predniSONE 40 mg PO DAILY #0 tablet 08/12/16 [Last Taken Unknown] Discharge Medications: Refer to the Discharge Home Medication list for PRN reason. - Orders Services needed: Home Care, Registered Nurse, Certified Mill Supervisor, Physical Therapy, Occupational Therapy Home Care Face to Face: I certify that this patient was under my care and that I had the required [id number] encounter meeting the encounter requirements on the discharge day. My findings support the fact that the patient is homebound as defined in CMS Chapter 7 Medicare Benefits Manual 30.1.1, The condition of the patient is such that there exists a normal inability to leave home and consequently, leaving home would require a considerable and taxing effort. Diet Recommendation: cardiac -low fat low salt Diet Texture: Regular Texture Diet Additional: and palliative care - Follow Up Care Current Providers and Referrals: Man Lee MD [Primary Care Provider] - As per Instructions
[2016-08-12 13:02] VITALS: BP 148/83; PULSE 71; RESP 20; TEMP 97.9
--- NOTE | 2016-08-12 19:11 | GDS ---
DISCHARGE DIAGNOSES: Include: 1. Acute chronic obstructive pulmonary disease exacerbation. 2. [id number] hypoxic respiratory failure. 3. Chronic kidney disease stage 3. 4. Coronary artery disease. 5. Chronic diastolic heart failure. 6. Opiate and benzodiazepine dependency, chronic use. 7. Alcohol abuse. 8. Dementia. 9. History of pulmonary embolism, not on anticoagulation secondary to fall risk. 10. Hypertension. 11. Buttock wounds present on admission. HISTORY OF PRESENT ILLNESS: A 76-year-old male with multiple medical comorbidities, who presents wi th acute shortness of breath. For details of patient's initial presentation, please see the History and Physical dated 08/09/2016. HOSPITAL COURSE: By issue: 1. Acute chronic obstructive pulmonary disease exacerbation. Patient was presenting with acute sana rtness of breath, increased oxygen requirements, and physical exam consistent with acute COPD exacer bation, was initiated on steroid burst, antibiotics, and inhaled medications. He had rapid resoluti on of his acute symptoms to his baseline hypoxia over the first 24-48 hours of his stay. He is bein g discharged on a prednisone taper, and completion of an antibiotic course, with his normal inhaled home medications. 2. Disposition: The patient was adamant to return home rather than a [facility] facility. It was the recommendation of the medical and therapy teams that the patient would be safest in a skill ed nursing environment. Ethics was consulted and felt the patient had decisional capacity. The pat ient was discharged today to home with Home Health and Palliative Care. DISCHARGE MEDICATIONS: Please reference medication reconciliation printed on 06/11/2017. FOLLOWUP APPOINTMENTS: Include with his primary care provider after completion of his steroid and a ntibiotic courses. PENDING STUDIES: At the time of this dictation are none. TIME SPENT: I spent greater than 30 minutes in the planning and coordination of this discharge. /[id number]/MODL
== END 2016-08-12 14:11 | disposition home health service (06) | DRG 191 ==
LOC: F3E 19:45
PROVIDERS: ADMIT Internal Medicine; ATTEND Hospitalist
DX: J44.1 Chronic obstructive pulmonary disease with (acute) exacerbation (principal); J96.11 Chronic respiratory failure with hypoxia; I13.0 Hypertensive heart and chronic kidney disease with heart failure and stage 1 through stage 4 chronic kidney disease, or unspecified chronic kidney disease; I50.32 Chronic diastolic (congestive) heart failure; N18.3 Chronic kidney disease, stage 3 (moderate); L89.159 Pressure ulcer of sacral region, unspecified stage; L89.319 Pressure ulcer of right buttock, unspecified stage; L89.329 Pressure ulcer of left buttock, unspecified stage; I25.10 Atherosclerotic heart disease of native coronary artery without angina pectoris; F03.90 Unspecified dementia, unspecified severity, without behavioral disturbance, psychotic disturbance, mood disturbance, and anxiety; E78.5 Hyperlipidemia, unspecified; F11.20 Opioid dependence, uncomplicated; F13.20 Sedative, hypnotic or anxiolytic dependence, uncomplicated; F10.10 Alcohol abuse, uncomplicated; Z66 Do not resuscitate; Z86.711 Personal history of pulmonary embolism; Z95.1 Presence of aortocoronary bypass graft; Z87.891 Personal history of nicotine dependence
CPT/HCPCS: 96374; 97116-GP; 97163-GP; 97166-GO; 97530-GP; 97535-GO; G8978-GP-CK; G8979-GP-CI; G8987-GO-CJ; G8988-GO-CI; J1650; Q9967